=== PATIENT | male | born 1975 | race Caucasian/White ===

== ENCOUNTER 2020-12-29 13:48 | Inpatient (IN) | payer BC ==
[~2020-12-29] VITALS: Ht 180.3 cm; Wt 99.8 kg
--- NOTE | 2020-12-29 13:52 | NUR ---
Patient to ER bed 8 to gown for evaluation. Side rails up.
--- NOTE | 2020-12-29 13:53 | NUR ---
Patient is here for abscesses at the bilateral lower extremities. Patient is assessed by RN he is AO x4 cooperative. Ambulatory. Multiple nodules noted at the upper extremities patient admits using IV heroin.
--- NOTE | 2020-12-29 13:54 | NUR ---
ER Dr. Lucas at bedside examining patient.
[2020-12-29 14:00] VITALS: BP_SYST 155
[2020-12-29] MEDS ORDERED: VANCOMYCIN HCL 1,000 MG in NS 250 ML IV ONE (14:30)
[2020-12-29] MEDS ORDERED: NACL 0.9% 1,000 ML IV ONE (14:30)
[2020-12-29] MEDS ORDERED: VANCOMYCIN HCL 1000 MG/VIAL IV ONE (14:40)
[2020-12-29 14:56] LABS: HEMATOCRIT 39.1 % (36-54); WHITE BLOOD COUNT (AUTO) 10.2 K/uL (4.8-10.8)
[2020-12-29 15:00] LABS: BASOPHILS # (AUTO) 0.1 K/uL (0.0-0.2); BASOPHILS % (AUTO) 0.8 % (0.0-2.0); EOSINOPHILS # (AUTO) 0.2 K/uL (0.0-0.4); EOSINOPHILS % (AUTO) 1.7 % (0.0-4.0); HEMOGLOBIN 13.3 g/dL (14.0-18.0); LYMPHOCYTES # (AUTO) 1.7 K/uL (1.0-5.5); LYMPHOCYTES % (AUTO) 16.9 % (20.5-51.5); MEAN CORPUSCULAR HEMOGLOBIN 29 pg (27-31); MEAN CORPUSCULAR HGB CONC 34 % (32-36); MEAN CORPUSCULAR VOLUME 86 fL (79.0-98.0); MONOCYTES # (AUTO) 1.4 K/uL (0.0-1.0); MONOCYTES % (AUTO) 13.8 % (1.7-9.3); NEUTROPHILS # (AUTO) 6.8 K/uL (1.8-7.7); NEUTROPHILS % (AUTO) 66.8 % (40.0-70.0); PLATELET COUNT (AUTO) 340 K/uL (130-430); RED BLOOD CELL COUNT(AUTO) 4.54 MIL/uL (4.2-6.2)
[2020-12-29 15:04] LABS: CALCIUM 8.1 mg/dL (8.4-11.0); CREATININE 1.07 mg/dL (0.55-1.30); POTASSIUM 3.7 mmol/L (3.5-5.1)
[2020-12-29 15:10] LABS: ALBUMIN 3.1 g/dL (3.4-4.8); TOTAL BILIRUBIN 0.4 mg/dL (0.0-1.0)
--- NOTE | 2020-12-29 15:16 | NUR ---
Patient will be admitted to care of Dr. Nair. Admitted to medsurg unit. Waiting for room assignment. Belongings list completed. Complete and up to date summary report printed. SBAR report to be given at bedside with opportunity for questions.
--- NOTE | 2020-12-29 15:47 | NUR ---
Transfer to [facility]. EMT present. IV present no signs or symptoms of infiltration.
[2020-12-29 15:58] LABS: BILIRUBIN,URINE NEGATIVE (NEGATIVE); BLOOD, URINE NEGATIVE (NEGATIVE); CLARITY/URINE CLEAR (CLEAR); COLOR,URINE YELLOW (YELLOW); GLUCOSE,URINE NEGATIVE (NEGATIVE); KETONES,URINE NEGATIVE (NEGATIVE); LEUKOCYTE ESTERASE ,URINE NEGATIVE (NEGATIVE); NITRITE, URINE NEGATIVE (NEGATIVE); PH,URINE 6.5 (5.0-8.0); PROTEIN URINE NEGATIVE (NEGATIVE); UROBILINOGEN,URINE 0.2 (0.2-1.0)
--- NOTE | 2020-12-29 16:02 | NUR ---
CONSULT ID CELLULITIS DR [facility] [phone] S/W TRISH EXCHANGE
[2020-12-29 16:15] VITALS: BP_SYST 143
--- NOTE | 2020-12-29 16:15 | NUR ---
RECEIVED PT FROM LEIGHANN LOPEZ. PT STABLE AT THIS TIME.
[2020-12-29] MEDS ORDERED: FLU VACC QS2020-21 (6 mos & up) 0.5 ML/SYRINGE I.M. PRN (16:30)
[2020-12-29] MEDS ORDERED: ACETAMINOPHEN 325 MG TABLET PO PRN (18:15)
[2020-12-29] MEDS ORDERED: HYDROcodone/ACETAMIN 10-325 MG TAB PO PRN (18:15)
[2020-12-29] MEDS ORDERED: LORazepam 2 MG/ML VIAL IVP PRN (18:15)
[2020-12-29] MEDS ORDERED: ONDANSETRON HCL 4 MG/2 ML VIAL IVP PRN (18:15)
[2020-12-29] MEDS ORDERED: HYDROcodone/ACETAMIN 5-325 MG TAB (NORCO/ VICODIN) PO PRN (18:15)
[2020-12-29] MEDS ORDERED: NALOXONE HCL 0.4 MG/ML AMP (NARCAN) IVP PRN ×2 (18:15)
[2020-12-29] MEDS: PIPERACILLIN/TAZO 3.375/DEX-IS 50 ML IV SCH (19:30)
--- NOTE | 2020-12-29 19:30 | NUR ---
CLOSING NOTES PT AWAKE, ALERT, AND ORIENTED. WATCHING TV. NONLABORED BREATHING NOTED ON ROOM AIR, TOLERATING WELL. IV LINE INFILTRATED. LEIGHANN SALAZAR ATTEMPTED RE-INSERTION, UNSUCCESSFUL, ENDORSED TO LEIGHANN CHEN TO CALL DR. DOE. NO ACUTE DISTRESS NOTED. ALL NEEDS MET. CALL LIGHT IN REACH. FALL AND ASPIRATION PRECAUTIONS IN PLACE. ENDORSED CARE TO LEIGHANN CHEN. GUSTAVO VERBALIZED UNDERSTANDING. Addendum: 12/29/20 at 1950 by Lakeisha Winters RN ENDORSED TO GUSTAVO PT'S BELONGINGS TO BE TAKEN TO SECURITY.
--- NOTE | 2020-12-29 20:00 | NUR ---
CHANGE OF SHIFT; pt. checked and sleeping, no resp. distress. no IV access. call light at bedside.
--- NOTE | 2020-12-29 20:37 | NUR ---
NOTES: called dr. Nair to inform about no IV access, order PICC line insertion in am. will try to insert peripheral line.
[2020-12-29] MEDS: NORMAL SALINE 5 ML DISP.SYRIN IVF SCH (22:00)
--- NOTE | 2020-12-29 22:00 | NUR ---
NOTES: pt. awake, denies any pain nor discomfort. pt. informed about PICC line insertion in am. no IV access for IV antibiotic.
--- NOTE | 2020-12-29 23:30 | NUR ---
NOTES: informed charge nurse about no IV access, ask him to try to insert IV , said he will check. pt. denies any pain nor discomfort.
[2020-12-30 00:17] VITALS: BP_SYST 132
--- NOTE | 2020-12-30 02:01 | NUR ---
NOTES: condition observed. pt. sleeping. continue to monitor.
[2020-12-30] MEDS ORDERED: VANCOMYCIN HCL 1 GM/NS PREMIX 250 ML IV ONE (04:00)
--- NOTE | 2020-12-30 05:00 | NUR ---
NOTES: pt. already awake, ambulated to restroom. checked lower extremities with discoloration and dry scabs. checked veins, unable to see on with tattoos on both arms. consent signed for PICC line this am.
[2020-12-30] MEDS: NORMAL SALINE 5 ML DISP.SYRIN IVF SCH ×3 (06:00→22:22)
[2020-12-30] MEDS: PIPERACILLIN/TAZO 3.375/DEX-IS 50 ML IV SCH ×5 (06:00→23:58)
[2020-12-30 06:27] LABS: BASOPHILS # (AUTO) 0.1 K/uL (0.0-0.2); BASOPHILS % (AUTO) 0.7 % (0.0-2.0); EOSINOPHILS # (AUTO) 0.2 K/uL (0.0-0.4); EOSINOPHILS % (AUTO) 2.1 % (0.0-4.0); HEMATOCRIT 41.9 % (36-54); LYMPHOCYTES # (AUTO) 1.9 K/uL (1.0-5.5); LYMPHOCYTES % (AUTO) 18.8 % (20.5-51.5); MEAN CORPUSCULAR HEMOGLOBIN 29 pg (27-31); MEAN CORPUSCULAR HGB CONC 33 % (32-36); MEAN CORPUSCULAR VOLUME 87 fL (79.0-98.0); MONOCYTES # (AUTO) 1.1 K/uL (0.0-1.0); MONOCYTES % (AUTO) 11.1 % (1.7-9.3); NEUTROPHILS # (AUTO) 6.9 K/uL (1.8-7.7); NEUTROPHILS % (AUTO) 67.3 % (40.0-70.0); PLATELET COUNT (AUTO) 348 K/uL (130-430); RED BLOOD CELL COUNT(AUTO) 4.83 MIL/uL (4.2-6.2); RED CELL DISTRIBUTION WIDTH 13.1 % (9.0-15.0); WHITE BLOOD COUNT (AUTO) 10.2 K/uL (4.8-10.8)
--- NOTE | 2020-12-30 06:30 | NUR ---
CLOSING NOTES; no distress. ambulated to the restroom. for PICC line insertion today. call light at bedside.
[2020-12-30 07:42] LABS: ALBUMIN 3.1 g/dL (3.4-4.8); CALCIUM 8.6 mg/dL (8.4-11.0); CREATININE 1.02 mg/dL (0.55-1.30); POTASSIUM 3.9 mmol/L (3.5-5.1); TOTAL BILIRUBIN 0.6 mg/dL (0.0-1.0)
[2020-12-30 08:00] VITALS: BP_SYST 149
[2020-12-30 08:14] LABS: ERYTHROCYTE SEDIMENTATION RATE 55 MM/HR (0-15)
[2020-12-30] MEDS ORDERED: MUPIROCIN 2% TOPICAL OINTMENT 22 GM TP SCH (09:00)
[2020-12-30 12:09] VITALS: BP_SYST 134
--- NOTE | 2020-12-30 14:15 | NUR ---
PICC LINE INSERTED IN LEFT UPPER ARM. X RAY CONFIRMED PLACEMENT. PATENT AND INFUSING FLUIDS ORDERED. BLOOD RETURNED NOTED.
[2020-12-30] MEDS: VANCOMYCIN HCL 1,000 MG in NS 250 ML IV SCH ×2 (14:56→17:18)
--- NOTE | 2020-12-30 15:20 | NUR ---
WOUND EVALUATION: Wound Consult received from Dr. Ernesto Nair. Thank you, Dr. Nair, for the consult. Patient received in a Florence Bed with an Atmos-Air 9000 mattress, awake, alert, and oriented. Patient is unable to turn independently. Teddy Score is a 20. Past Medical History: gradual worsening pain, redness and swelling to bilateral lower extremities, positive tobacco ad IV drug use. Recent Labs: WBC 10.2, RBC 4.83, hemoglobin 14.0, hematocrit 41.9, ESR 55, BUN 12, creatinine 1.02, GFR 84, glucose 143, C-reactive protein 5.0, serum total protein 5.4, albumin 3.1. Intrinsic factors that delay wound healing: IV drug use. Extrinsic factors that delay wound healing: Decreased mobility. Microbiology: Microbiology: Blood culture results x2 in progress. Wound culture results in progress. Wound Assessment: 1. Left Lower Extremity, Inferior to Knee: Cellulitis with multiple, multiple scabs, erythema, non-pitting edema and calor, present on admission. Scabs are brown in color. No odor, no drainage. Dry, stable. Scabs present from anterior regalado to posterior calf, medially. Noemí-wounds intact. Scab area measures 15.0 cm x 13.0 cm. 2. Right Lower Extremity, Inferior to Knee: Cellulitis with multiple, multiple scabs, erythema, non-pitting edema and calor, present on admission. Scabs are brown in color. No odor, no drainage. Dry, stable. Scabs present from medial calf to posterior calf. Noemí-wounds intact. Scab area measures 15.0 cm x 11.0 cm. Recommend: No dressings needed. Continue to monitor sites every shift. Elevate bilateral lower extremities as tolerated to decrease edema. Also recommend: Encourage and assist patient as needed with repositioning every 2 hours with pillow support and off-load pressure areas with pillows for pressure re-distribution. Offload, elevate and float bilateral heels with pillows. Perform skin care and monitor skin integrity Q shift. Addendum: 12/30/20 at 1743 by Xu Rojo RN Addendum: Apply Betadine to scab areas on bilateral lower extremities daily.
[2020-12-30 16:10] VITALS: BP_SYST 156
--- NOTE | 2020-12-30 18:27 | NUR ---
CLOSING NOTES PATIENT IS SITTING UP IN BED ALERT AND ORIENTED X4. ON ROOM AIR AND TOLERATING WELL WITH NO SIGNS OF SHORTNESS OF BREATH NOTED. IV IS PATENT AND INTACT, SALINE LOCKED. BED LOCKED AND IN LOWEST POSITION. CALL LIGHT WITHIN REACH. WILL ENDORSE TO NIGHT NURSE.
--- NOTE | 2020-12-30 19:35 | NUR ---
initial notes: pt is awake, alert, oriented x 4. no complain of pain, stable vital sign. brp with steady gait. left upper arm picc line- saline lock. wounds on both lower extremities- open to air. explain plan of care, safety and medication. pt verbalized understanding. needs attended, call light in reach, side rails up. low bed position. will follow up.
[2020-12-30 19:47] VITALS: BP_SYST 162
[2020-12-30 23:54] VITALS: BP_SYST 137
--- NOTE | 2020-12-31 | NUR ---
pt is still awake, alert, stable vital sign, no complain of pain, needs attended, call light in reach. will follow-up.
[2020-12-31] MEDS: VANCOMYCIN HCL 1,000 MG in NS 250 ML IV SCH ×2 (03:08→09:30)
[2020-12-31] MEDS: NORMAL SALINE 5 ML DISP.SYRIN IVF SCH ×2 (05:56→14:00)
[2020-12-31] MEDS: PIPERACILLIN/TAZO 3.375/DEX-IS 50 ML IV SCH ×3 (05:56→18:46)
--- NOTE | 2020-12-31 06:56 | NUR ---
closing: pt is sleeping, comfortable, no sign of distress, no sob, stable. ivf infusing well. needs attended the whole shift. call light with the pt. side rails up. low bed position. will give sbar reporting to am rn.
--- NOTE | 2020-12-31 07:15 | NUR ---
opening note Received sbar from night RN, patient in bed, respirations even, non labored, bed in low and locked position call light within reach,
[2020-12-31 07:25] LABS: CALCIUM 8.4 mg/dL (8.4-11.0); CREATININE 1.08 mg/dL (0.55-1.30)
[2020-12-31 07:28] LABS: BASOPHILS # (AUTO) 0.1 K/uL (0.0-0.2); BASOPHILS % (AUTO) 0.9 % (0.0-2.0); EOSINOPHILS # (AUTO) 0.4 K/uL (0.0-0.4); EOSINOPHILS % (AUTO) 4.1 % (0.0-4.0); HEMATOCRIT 40.6 % (36-54); HEMOGLOBIN 13.6 g/dL (14.0-18.0); LYMPHOCYTES # (AUTO) 1.8 K/uL (1.0-5.5); LYMPHOCYTES % (AUTO) 19.3 % (20.5-51.5); MEAN CORPUSCULAR HEMOGLOBIN 29 pg (27-31); MEAN CORPUSCULAR HGB CONC 34 % (32-36); MEAN CORPUSCULAR VOLUME 88 fL (79.0-98.0); MONOCYTES # (AUTO) 1.2 K/uL (0.0-1.0); MONOCYTES % (AUTO) 12.6 % (1.7-9.3); NEUTROPHILS % (AUTO) 63.1 % (40.0-70.0); PLATELET COUNT (AUTO) 313 K/uL (130-430); RED BLOOD CELL COUNT(AUTO) 4.63 MIL/uL (4.2-6.2); RED CELL DISTRIBUTION WIDTH 13.2 % (9.0-15.0); WHITE BLOOD COUNT (AUTO) 9.6 K/uL (4.8-10.8)
[2020-12-31 08:00] VITALS: BP_SYST 150
--- NOTE | 2020-12-31 08:00 | NUR ---
nurse note obtained vs, patient in bed, respirations even, non labored, bed in low and locked position call light within reach, patient denies any pain
[2020-12-31 08:28] LABS: C-REACTIVE PROTEIN QUANT 2.7 mg/dL (0-0.5)
--- NOTE | 2020-12-31 10:00 | NUR ---
nurse note assisted patient ambulate to the shower, patient able to ambulate independently.
[2020-12-31 10:26] LABS: ERYTHROCYTE SEDIMENTATION RATE 49 MM/HR (0-15)
[2020-12-31 12:05] VITALS: BP_SYST 152
--- NOTE | 2020-12-31 12:21 | NUR ---
SS notes: SHOT POLISHER AND INSPECTOR was referred by SS to see patient for heroine use. SHOT POLISHER AND INSPECTOR met with patient at bedside. Pt stated he has been on heroine on and off, and has been on current heroine use for 1 year. Pt stated he has a history of detox at [facility] and wishes to go back when discharged from the hospital. Pt appears to be hopeful and stated he will detox for his 8 month old daughter and that he wants to be able to take care of her. SHOT POLISHER AND INSPECTOR provided patient with detox facilities phone #'s and will remain available when needed.
--- NOTE | 2020-12-31 12:58 | NUR ---
Dietitian Recommendations *Recommend: regular diet w/ double portions of meat and vegetables. Please see Nutritional Assessment for details. SHERIN RIOS
--- NOTE | 2020-12-31 16:00 | NUR ---
nurse note patient in bed, respirations even, non labored, bed in low and locked position call light within reach, denies any pain or discomfort
[2020-12-31 16:01] VITALS: BP_SYST 140
[2020-12-31] MEDS ORDERED: DOXY100C PO (18:01)
[2020-12-31] MEDS ORDERED: AMOX-426 PO (18:01)
--- NOTE | 2020-12-31 19:00 | NUR ---
closing note provided sbar to night rn, patient in bed, respirations even, non labored, bed in low and locked position call light within reach, endorsed discharge, flu vaccine, wound pictures, and removal of picc line to night RN
[2020-12-31 19:55] VITALS: BP_SYST 158
--- NOTE | 2020-12-31 20:19 | NUR ---
D/C Patient Patient given medication reconciliation form and D/C instructions. Exit Care provided. Patient verbalized understanding. MD discussed with patient the results and treatment provided. Ambulatory with steady gait for discharge to home. Patient in stable condition, ID band removed. IV catheter removed, intact and dressing applied, no active bleeding. Rx of antibiotics explained. Patient educated on pain management and treatment. All belongings sent with patient. Patient taken via wheelchair to car by primary RN.
== END 2020-12-31 20:15 | disposition home or self-care (01) | DRG 383 ==
LOC: SED 13:48 → SMU 15:15
PROVIDERS: ADMIT Preventive Medicine Preventive Medicine/Occupational Environmental Medicine; ATTEND Preventive Medicine Preventive Medicine/Occupational Environmental Medicine
DX: L03.115 Cellulitis of right lower limb (principal); L03.116 Cellulitis of left lower limb; E78.00 Pure hypercholesterolemia, unspecified; E78.5 Hyperlipidemia, unspecified; E83.51 Hypocalcemia; L97.929 Non-pressure chronic ulcer of unspecified part of left lower leg with unspecified severity; L97.919 Non-pressure chronic ulcer of unspecified part of right lower leg with unspecified severity; R73.9 Hyperglycemia, unspecified; E44.0 Moderate protein-calorie malnutrition; F11.10 Opioid abuse, uncomplicated; F17.200 Nicotine dependence, unspecified, uncomplicated; Z20.822 Contact with and (suspected) exposure to COVID-19; E88.09 Other disorders of plasma-protein metabolism, not elsewhere classified; Z88.8 Allergy status to other drugs, medicaments and biological substances; Z88.1 Allergy status to other antibiotic agents; Z88.2 Allergy status to sulfonamides; Z68.30 Body mass index [BMI] 30.0-30.9, adult; R65.11 Systemic inflammatory response syndrome (SIRS) of non-infectious origin with acute organ dysfunction
CPT/HCPCS: 36415; 71045; 80048; 80053; 80202-TC; 81003; 83605; 85025; 85651-TC; 86140; 87040-TC; 87070-TC; 93005; C1751; J2543; J3370; J7040; J7050

== ENCOUNTER 2024-01-21 04:34 | Emergency (ER) | payer BC ==
[~2024-01-21] VITALS: Ht 180.3 cm; Wt 104.3 kg
[~2024-01-21 04:34] MED LIST: DOXY100C PO
[2024-01-21 04:56] VITALS: BP_SYST 154; PULSE 103; RESP 20; TEMP 98.5; O2SAT 99
[2024-01-21 07:27] LABS: BASOPHILS # (AUTO) 0.1 K/uL (0.0-0.2); BASOPHILS % (AUTO) 0.8 % (0.0-2.0); EOSINOPHILS # (AUTO) 0.4 K/uL (0.0-0.4); EOSINOPHILS % (AUTO) 3.4 % (0.0-4.0); HEMATOCRIT 41.9 % (36-54); HEMOGLOBIN 13.7 g/dL (14.0-18.0); LYMPHOCYTES # (AUTO) 2.7 K/uL (1.0-5.5); LYMPHOCYTES % (AUTO) 22.4 % (20.5-51.5); MEAN CORPUSCULAR HEMOGLOBIN 27 pg (27-31); MEAN CORPUSCULAR HGB CONC 33 % (32-36); MEAN CORPUSCULAR VOLUME 82 fL (79.0-98.0); MONOCYTES # (AUTO) 1.5 K/uL (0.0-1.0); NEUTROPHILS # (AUTO) 7.2 K/uL (1.8-7.7); NEUTROPHILS % (AUTO) 60.4 % (40.0-70.0); PLATELET COUNT (AUTO) 299 K/uL (130-430); RED BLOOD CELL COUNT(AUTO) 5.13 MIL/uL (4.2-6.2); RED CELL DISTRIBUTION WIDTH 14.1 % (9.0-15.0); WHITE BLOOD COUNT (AUTO) 11.8 K/uL (4.8-10.8)
[2024-01-21 07:33] LABS: CALCIUM 8.5 mg/dL (8.4-11.0); CREATININE 0.85 mg/dL (0.55-1.30); POTASSIUM 3.9 mmol/L (3.5-5.1)
[2024-01-21 07:35] LABS: PROTHROMBIN TIME 10.5 SECS (9.5-12.5)
[2024-01-21] MEDS: FUROSEMIDE 20 MG TABLET PO ONE (07:58)
[2024-01-21] MEDS: AMOXICILLIN/POTASSIUM CLAV 875 MG TABLET PO ONE (07:58)
[2024-01-21 08:00] LABS: BILIRUBIN,DIRECT 0.2 mg/dL (0.0-0.3); TOTAL BILIRUBIN 0.5 mg/dL (0.0-1.0); TOTAL PROTEIN, SERUM 8.3 g/dL (6.4-8.3)
[2024-01-21] MEDS ORDERED: FURO-150 PO (08:11)
[2024-01-21] MEDS ORDERED: POTA-195 PO (08:11)
[2024-01-21] MEDS ORDERED: AUG875 PO (08:11)
[2024-01-21 08:59] VITALS: BP_SYST 150; PULSE 92; RESP 18; TEMP 98.4; O2SAT 95
== END 2024-01-21 08:57 | disposition home or self-care (01) ==
LOC: SED 04:34
DX: L03.116 Cellulitis of left lower limb (principal); L03.115 Cellulitis of right lower limb; R60.0 Localized edema; F17.200 Nicotine dependence, unspecified, uncomplicated; F19.10 Other psychoactive substance abuse, uncomplicated; Z88.2 Allergy status to sulfonamides; Z79.899 Other long term (current) drug therapy
CPT/HCPCS: 36415; 71045; 80048; 80076; 83880; 84484; 85025; 85610; 85730; 93005; 93970; 99285